=== PATIENT | female | born 1985 | race Two or more races ===

== ENCOUNTER 2021-09-15 15:50 | Emergency (ER) | payer OTHER ==
[2021-09-15 16:20] VITALS: BP 126/76; PULSE 89; TEMP 98.6; BMI 33.8
[2021-09-16 13:07] LABS: SARS-CoV-2 NAA Not Detected (Not Detected)
== END 2021-09-15 16:43 | disposition home or self-care (01) ==
LOC: JER 15:50
DX: Z20.822 Contact with and (suspected) exposure to COVID-19 (principal)
CPT/HCPCS: 99283-25; C9803-CS; U0003; U0005

== ENCOUNTER 2023-11-21 15:30 | Emergency (ER) | payer OTHER ==
[2023-11-21 15:38] VITALS: BMI 27.8
[2023-11-21] MEDS ORDERED: IBUPROFEN 600 MG TABLET (FP) PO ONE (16:11)
[2023-11-21] MEDS: IBUPROFEN 600 MG TABLET (FP) PO ONE (16:13)
[2023-11-21 16:18] VITALS: RESP 18; TEMP 98.3
== END 2023-11-21 17:01 | disposition home or self-care (01) ==
LOC: JER 15:30
DX: M79.672 Pain in left foot (principal)
CPT/HCPCS: 73610-TC-LT-FY; 73630-TC-LT; 99283-25

== ENCOUNTER 2024-03-25 07:44 | Emergency (ER) | payer OTHER ==
[2024-03-25 07:53] VITALS: BP 117/78; PULSE 57; RESP 18; TEMP 98.4; BMI 29.5
[2024-03-25 08:34] LABS: BASO % 0.7 % (0-2.0); EOS % 2.5 % (0-4.5); HEMATOCRIT 38.4 % (32.4-45.2); HEMOGLOBIN 12.5 GM/dL (10.7-15.3); MCH 31.5 pg (25.7-33.7); MCHC 32.5 g/dl (32.0-36.0); MEAN CELL VOLUME 97.2 fl (80-96); MEAN PLT VOLUME 8.6 fl (7.5-11.1); MONO % 10.7 % (3.8-10.2); NEUT % 48.1 % (42.8-82.8); PLATELET COUNT 238 10^3/uL (134-434); RBC 3.95 M/mm3 (3.60-5.2); RDW 13.7 % (11.6-15.6); WHITE BLOOD COUNT 5.2 K/mm3 (4.0-10.0)
[2024-03-25] MEDS ORDERED: METOCLOPRAMIDE HCL INJECTION 10 MG/2 ML VIAL ONE (08:34)
[2024-03-25] MEDS ORDERED: KETOROLAC TROMETHAMINE 30 MG/1 ML VIAL ONE (08:34)
[2024-03-25] MEDS: KETOROLAC TROMETHAMINE 30 MG/1 ML VIAL IVPUSH ONE (08:46)
[2024-03-25] MEDS: METOCLOPRAMIDE HCL INJECTION 10 MG/2 ML VIAL IVPUSH ONE (08:46)
[2024-03-25 09:17] LABS: POTASSIUM 4.2 mmol/L (3.5-5.1)
[2024-03-25 09:20] LABS: CALCIUM 9.7 mg/dL (8.5-10.1)
[2024-03-25 09:21] LABS: ALBUMIN 3.8 g/dl (3.4-5.0); BLOOD UREA NITROGEN 9.8 mg/dL (7-18)
[2024-03-25 09:24] LABS: CREATININE 0.9 mg/dL (0.55-1.3)
[2024-03-25 09:26] LABS: BILIRUBIN,TOTAL 0.2 mg/dL (0.2-1)
== END 2024-03-25 11:39 | disposition home or self-care (01) ==
LOC: JERFT 07:44 → JER 07:44 → JERFT 11:39
PROC: 3E0333Z Introduction of Anti-inflammatory into Peripheral Vein, Percutaneous Approach (ICD-10-PCS; principal; 2024-03-25)
PROC: 3E033GC Introduction of Other Therapeutic Substance into Peripheral Vein, Percutaneous Approach (ICD-10-PCS; 2024-03-25)
DX: R51.9 Headache, unspecified (principal); R42 Dizziness and giddiness
CPT/HCPCS: 36415; 70450-TC; 70496-TC; 70498-TC; 80053; 84484; 84703; 85025; 93005; 93010; 99285-25